=== PATIENT | male | born 1995 | race Caucasian/White ===

== ENCOUNTER 2017-05-26 18:20 | Emergency (ER) | payer BC ==
[~2017-05-26] VITALS: Ht 190.5 cm; Wt 113.4 kg
--- NOTE | 2017-05-27 13:22 | EKG ---
[facility] [address] [facility] [place], [place] [address] Signed Normal sinus rhythm with sinus arrhythmia Normal ECG No previous ECGs available Confirmed by JUVENTINO MEDINA MD ([id number]) on 05/27/2017 1:21:55 PM Electronically Signed By: JUVENTINO MEDINA MD 05/27/17 132 PATIENT NAME: SRI BLEVINS Electrocardiogram DATE OF : [birth year] PHYSICIAN: JUVENTINO MEDINA MD REPORT #: [id number] REPORT IS CONFIDENTIAL AND NOT TO BE RELEASED WITHOUT AUTHORIZATION
== END 2017-05-26 21:18 | disposition home or self-care (01) ==
LOC: ED 18:20
DX: R07.9 Chest pain, unspecified (principal); F17.210 Nicotine dependence, cigarettes, uncomplicated
CPT/HCPCS: 71020; 80053; 84484; 85025; 93005; 93010; 99284

== ENCOUNTER 2017-05-27 18:32 | Emergency (ER) | payer BC ==
[~2017-05-27] VITALS: Ht 190.5 cm; Wt 113.4 kg
== END 2017-05-27 22:15 | disposition home or self-care (01) ==
LOC: ED 18:32
DX: F41.9 Anxiety disorder, unspecified (principal); F17.200 Nicotine dependence, unspecified, uncomplicated
CPT/HCPCS: 99282

== ENCOUNTER 2017-06-04 00:23 | Emergency (ER) | payer BC | END 2017-06-04 01:23 | disposition home or self-care (01) | LOC: ED 00:23 | DX: R20.2 Paresthesia of skin (principal); F17.200 Nicotine dependence, unspecified, uncomplicated | CPT/HCPCS: 70450; 99284 ==

== ENCOUNTER 2022-05-07 14:06 | Emergency (ER) | payer BC ==
[~2022-05-07] VITALS: Ht 190.5 cm; Wt 154.2 kg
--- NOTE | 2022-05-07 20:07 | EKG ---
[facility] [address] [facility] [place], [place] [address] Signed Normal sinus rhythm Normal ECG No previous ECGs available Confirmed by ALONSO HENSLEY MD ([id number]) on 05/07/2022 8:07:18 PM Electronically Signed By: ALONSO HENSLEY MD 05/07/22 2007 PATIENT NAME: SRI BLEVINS Electrocardiogram DATE OF : [birth year] PHYSICIAN: ALONSO HENSLEY MD REPORT #: [id number] REPORT IS CONFIDENTIAL AND NOT TO BE RELEASED WITHOUT AUTHORIZATION
== END 2022-05-07 20:08 | disposition home or self-care (01) ==
LOC: ED 14:06
DX: R07.81 Pleurodynia (principal); G47.30 Sleep apnea, unspecified; E66.9 Obesity, unspecified; Z20.822 Contact with and (suspected) exposure to COVID-19
CPT/HCPCS: 36415; 71045; 71260; 80053; 82150; 83690; 83735; 84484; 85025; 85379; 87502; 93005; 93010; 99285-25; A9270; C9803; Q9967; U0003

== ENCOUNTER 2025-06-05 10:20 | Emergency (ER) | payer BC, OTHER ==
[~2025-06-05] VITALS: Ht 190.5 cm; Wt 225.3 kg
[2025-06-05 11:09] LABS: BASOPHILS 0.3 % (0.2-1.2); EOSINOPHILS 1.3 % (0.8-7.0); LYMPHOCYTES 32.1 % (21.8-53.1); MCH 25.5 PG (25.7-32.2); MCHC 31.1 g/dL (32.3-36.5); MCV 81.9 fL (79.0-92.2); MONOCYTES 5.6 % (5.3-12.2); NEUTROPHILS 60.5 % (34.0-67.9); RBC 4.04 M/uL (4.63-6.08)
[2025-06-05 11:36] LABS: ALT (SGPT) 105.0 U/L (14-59); AST (SGOT) 66.0 U/L (15-37); GLOMERULAR FILTRATION RATE,EST 98.0 mL/min (>60); PROTEIN, TOTAL 7.7 g/dL (6.4-8.2); UREA NITROGEN 16.0 mg/dL (7-18)
[2025-06-05 14:42] VITALS: BP 126/76
--- NOTE | 2025-06-06 19:14 | EKG ---
[facility] [address] [facility] [place] [address] Signed Normal sinus rhythm Normal ECG When compared with ECG of 07-MAY-2022 14:13, No significant change was found Confirmed by Ji De DO ([id number]) on 06/06/2025 7:14:24 PM Electronically Signed By: JI DE DO 06/06/251913 PATIENT NAME: SRI BLEVINS DANGELO Electrocardiogram DATE OF : [birth year] PHYSICIAN: JI DE DO REPORT #: [id number] REPORT IS CONFIDENTIAL AND NOT TO BE RELEASED WITHOUT AUTHORIZATION
--- NOTE | 2025-06-06 19:16 | EKG ---
[facility] [address] [facility] [place], [place] [address] Signed Normal sinus rhythm Low voltage QRS Borderline ECG When compared with ECG of 05-JUN-2025 10:25, (Unconfirmed) No significant change was found Confirmed by Ji De DO ([id number]) on 06/06/2025 7:15:50 PM Electronically Signed By: JI ED DO 06/06/25 191 PATIENT NAME: SRI BLEVINS DANGELO Electrocardiogram DATE OF : [birth year] PHYSICIAN: JI DE DO REPORT #: [id number] REPORT IS CONFIDENTIAL AND NOT TO BE RELEASED WITHOUT AUTHORIZATION
== END 2025-06-05 14:45 | disposition home or self-care (01) ==
LOC: ED 10:20
PROVIDERS: Emergency Medicine
DX: R07.9 Chest pain, unspecified (principal); F17.200 Nicotine dependence, unspecified, uncomplicated
CPT/HCPCS: 36415; 71045; 71260; 80053; 83735; 84484; 85025; 93005; 93010; 99285-25; Q9967